=== PATIENT | male | born 1980 | race African-American/Black ===

== ENCOUNTER 2017-10-31 07:26 | Emergency (ER) | payer SELFPAY ==
[2017-10-31 09:42] LABS: #Eosinphils 0.1 thou/uL (0.0-0.7); #Monocytes 0.9 thou/uL (0.11-0.59); #Neutrophils 10.6 thou/uL (1.40-6.50); %Basophils 0.3 % (0.0-1.0); %Eosinophils 0.8 % (0.0-10.0); %Lymphocytes 7.8 % (21.0-51.0); %Monocytes 7.2 % (0.0-10.0); %Neutrophils 83.9 % (42.0-75.0); Hemoglobin 16.6 g/dL (14.0-18.0); Mean Corpuscular HGB CONC 33.2 g/dL (32.0-36.0); Mean Corpuscular Hemoglobin 31.7 pg (27.0-31.0); Mean Corpuscular Volume 95.4 fl (80.0-94.0); Mean Platelet Volume 6.8 fL (7.4-10.4); Platelet Count 283 thou/uL (130-400); RBC Distribution Width 12.5 % (11.5-14.5); Red Blood Cell (RBC) Count 5.26 mill/uL (4.70-6.10); White Blood Cell (WBC) Count 12.7 thou/uL (4.8-10.8)
[2017-10-31 10:01] LABS: Bilirubin Negative (Negative); Blood, Urine Trace (Negative); Clarity CLEAR (Clear); Glucose, Urine (Dipstick) Negative (Negative); Leukocyte Negative (Negative); Nitrite Negative (Negative); Protein, Urine (Dipstick) 100 mg/dL (Neg-Trace); Specific Gravity, Urine 1.023 (1.002-1.036)
[2017-10-31 10:03] LABS: Acetaminophen Less than 6.0 mcg/mL (10.0-30.0); Alcohol Less than 10 mg/dL (Less than 10); Salicylate Less than 8.0 mg/dL (15.0-30.0)
[2017-10-31 10:04] LABS: Bacteria/HPF None Seen HPF (None Seen); Pathc Cast-AUWi Flag 0.58 (0-2.49); Squamous Epithelial 0-3 HPF (0-3); WBC/HPF 0-3 HPF (0-3)
[2017-10-31 10:04] LABS: ALT (SGPT) 17 U/L (8-55); AST (SGOT) 21 U/L (5-34); Alkaline Phosphatase 70 U/L (40-150); Anion Gap 14 mmol/L (10-20); BUN (Urea Nitrogen) 14 mg/dL (8.9-20.6); Bilirubin, Total 0.9 mg/dL (0.2-1.2); CK (CPK) 867 U/L (30-200); Calc. Creatinine Clearance 0 mL/min (70-130); Carbon Dioxide 24 mmol/L (22-29); Chloride 102 mmol/L (98-107); Estimated GFR-MDRD 71; Globulin 3.3 g/dL (2.4-3.5); Glucose 108 mg/dL (70-105); Potassium 4.1 mmol/L (3.5-5.1); Protein, Total 8.3 g/dL (6.0-8.3); Sodium 136 mmol/L (136-145)
--- NOTE | 2017-10-31 10:07 | RAD ---
PA AND LATERAL CHEST: HISTORY: Chest pain. FINDINGS: Heart size and mediastinum are within normal limits. Lungs are clear of infiltrates. No significant bony findings. IMPRESSION: No active intrathoracic disease. POS: [facility]
[2017-10-31 10:08] LABS: CKMB 2.8 ng/mL (0-6.6)
[2017-10-31 10:10] LABS: Hyaline Casts/LPF 0-3 HYALINE CAST LPF (0-3 Hyaline); Renal Epithelial 0-3 HPF (0-3); Transitional Epithelial 0-3 HPF (0-3)
[2017-10-31 10:21] LABS: Troponin I 0.013 ng/mL (< 0.028)
[2017-10-31 10:57] LABS: Amphetamine Not Detected (NotDetected); Barbiturates Screen Not Detected (NotDetected); Benzodiazepine Screen Not Detected (NotDetected); Cocaine Metabolite Screen Detected (NotDetected); Medtox Control Line Valid? VALID (VALID); Medtox Reader # READER 4; Methadone Not Detected (NotDetected); Methamphetamine Not Detected (NotDetected); Opiate Screen Not Detected (NotDetected); Oxycodone Screen Not Detected (NotDetected); Phencyclidine (PCP) Not Detected (NotDetected); THC/Cannabinoid Screen Not Detected (NotDetected); Tricyclic Screen Not Detected (NotDetected)
== END 2017-10-31 11:59 | disposition home or self-care (01) ==
LOC: ERS 07:26
DX: F14.10 Cocaine abuse, uncomplicated (principal); F41.9 Anxiety disorder, unspecified; F32.9 Major depressive disorder, single episode, unspecified; F17.210 Nicotine dependence, cigarettes, uncomplicated; Z79.899 Other long term (current) drug therapy
CPT/HCPCS: 36415; 71046; 80053; 80306; 80307; 81003; 81015; 82553; 84443; 84484; 85025; 93005; 96360; 96361

== ENCOUNTER 2017-12-03 20:17 | Emergency (ER) | payer SELFPAY ==
[2017-12-03 21:52] LABS: Anion Gap 15 mmol/L (10-20); BUN (Urea Nitrogen) 10 mg/dL (8.9-20.6); Calc. Creatinine Clearance 0 mL/min (70-130); Calcium 9.4 mg/dL (7.8-10.44); Carbon Dioxide 22 mmol/L (22-29); Chloride 103 mmol/L (98-107); Estimated GFR-MDRD 54; Glucose 140 mg/dL (70-105); Potassium 3.3 mmol/L (3.5-5.1); Sodium 137 mmol/L (136-145)
--- NOTE | 2017-12-21 17:23 | EKG ---
Test Reason : TACHYCARDIA Blood Pressure : / mmHG Vent. Rate : 108 BPM Atrial Rate : 108 BPM P-R Int : 166 ms QRS Dur : 076 ms QT Int : 344 ms P-R-T Axes : 075 019 034 degrees QTc Int : 460 ms Sinus tachycardia Possible Left atrial enlargement Abnormal ECG Confirmed by ONEIDA BARTH M.D. ([id number]), legal editor KAYY SOLARES ([id number] on 12/21/2017 5:23:01 PM Referred By: Confirmed By:ONEIDA BARTH M.D.
== END 2017-12-03 22:42 | disposition home or self-care (01) ==
LOC: ERS 20:17
DX: F14.10 Cocaine abuse, uncomplicated (principal); R79.89 Other specified abnormal findings of blood chemistry; N17.9 Acute kidney failure, unspecified; F41.9 Anxiety disorder, unspecified; F32.9 Major depressive disorder, single episode, unspecified; F17.210 Nicotine dependence, cigarettes, uncomplicated; Z79.899 Other long term (current) drug therapy
CPT/HCPCS: 36415; 80048; 93005

== ENCOUNTER 2018-04-20 03:11 | Emergency (ER) | payer SELFPAY ==
[2018-04-20 03:59] LABS: Bilirubin Small (Negative); Blood, Urine Trace (Negative); Clarity CLEAR (Clear); Glucose, Urine (Dipstick) Negative (Negative); Leukocyte Negative (Negative); Nitrite Negative (Negative); Protein, Urine (Dipstick) 100 mg/dL (Neg-Trace); Specific Gravity, Urine 1.027 (1.002-1.036)
[2018-04-20 04:01] LABS: Bacteria/HPF Rare-Few HPF (None Seen); Hyaline Casts/LPF 0-3 HYALINE CAST LPF (0-3 Hyaline); Squamous Epithelial 0-3 HPF (0-3)
[2018-04-20 04:05] LABS: Sperm-AUWi Flag 514.7 (0-9.9)
[2018-04-20 04:08] LABS: Amphetamine Not Detected (NotDetected); Barbiturates Screen Not Detected (NotDetected); Benzodiazepine Screen Not Detected (NotDetected); Cocaine Metabolite Screen Detected (NotDetected); Medtox Control Line Valid? VALID (VALID); Medtox Reader # READER 1; Methadone Not Detected (NotDetected); Methamphetamine Not Detected (NotDetected); Opiate Screen Not Detected (NotDetected); Oxycodone Screen Not Detected (NotDetected); Phencyclidine (PCP) Not Detected (NotDetected); THC/Cannabinoid Screen Not Detected (NotDetected); Tricyclic Screen Not Detected (NotDetected)
[2018-04-20 04:11] LABS: RBC/HPF 0-3 HPF (0-3); Sperm/HPF 3+ HPF (None Seen)
[2018-04-20 04:20] LABS: #Monocytes 0.9 thou/uL (0.11-0.59); #Neutrophils 6.8 thou/uL (1.40-6.50); %Basophils 0.4 % (0.0-1.0); %Eosinophils 0.2 % (0.0-10.0); %Lymphocytes 11.4 % (21.0-51.0); %Monocytes 10.5 % (0.0-10.0); %Neutrophils 77.5 % (42.0-75.0); Hemoglobin 15.1 g/dL (14.0-18.0); Mean Corpuscular HGB CONC 33.1 g/dL (32.0-36.0); Mean Corpuscular Hemoglobin 31.8 pg (27.0-31.0); Mean Corpuscular Volume 95.8 fL (78.0-98.0); Mean Platelet Volume 7.3 fL (7.4-10.4); Platelet Count 280 thou/uL (130-400); RBC Distribution Width 12.8 % (11.5-14.5); Red Blood Cell (RBC) Count 4.75 mill/uL (4.70-6.10); White Blood Cell (WBC) Count 8.8 thou/uL (4.8-10.8)
[2018-04-20 04:37] LABS: ALT (SGPT) 23 U/L (8-55); AST (SGOT) 21 U/L (5-34); Albumin 4.9 g/dL (3.5-5.0); Alkaline Phosphatase 89 U/L (40-150); Anion Gap 13 mmol/L (10-20); BUN (Urea Nitrogen) 14 mg/dL (8.9-20.6); Bilirubin, Total 1.4 mg/dL (0.2-1.2); Calc. Creatinine Clearance 0 mL/min (70-130); Calcium 9.9 mg/dL (7.8-10.44); Carbon Dioxide 26 mmol/L (22-29); Chloride 103 mmol/L (98-107); Estimated GFR-MDRD 68; Glucose 101 mg/dL (70-105); Potassium 3.8 mmol/L (3.5-5.1); Protein, Total 7.9 g/dL (6.0-8.3); Sodium 138 mmol/L (136-145)
[2018-04-20 04:42] LABS: Troponin I Less than 0.010 ng/mL (< 0.028)
[2018-04-20 07:59] LABS: Troponin I Less than 0.010 ng/mL (< 0.028)
--- NOTE | 2018-04-20 08:57 | RAD ---
CHEST 2 VIEWS: COMPARISON: 10/31/2017. HISTORY: Pain. FINDINGS: Normal cardiac silhouette. Pulmonary vessels and hilum are normal. Costophrenic angles are clear. No masses or consolidation. No pneumothorax or osseous abnormalities. IMPRESSION: No acute cardiopulmonary process. POS: [facility]
== END 2018-04-20 08:22 ==
LOC: ERS 03:11
DX: F14.10 Cocaine abuse, uncomplicated (principal); F91.8 Other conduct disorders; F17.210 Nicotine dependence, cigarettes, uncomplicated
CPT/HCPCS: 36415; 36416; 71046; 80053; 80306; 81003; 81015; 84484; 85025; 93005

== ENCOUNTER 2019-02-23 10:58 | Day surgery (SDC) | payer OTHER ==
[2019-02-19 10:49] VITALS: BMI 25.0
[2019-02-23] MEDS ORDERED: Lidocaine 1% (PF) 30 ML VIAL ONE (11:59)
[2019-02-23] MEDS ORDERED: Fentanyl 100 MCG/2 ML VIAL ONE ×2 (13:12→14:51)
[2019-02-23] MEDS ORDERED: HYDROmorphone 0.5 MG/0.5 ML SYRINGE ONE (13:12)
[2019-02-23] MEDS ORDERED: Bupivacaine HCl 0.5%/Epinephrine 1:200,000/PF 30 ml Vial ONE (13:47)
[2019-02-23] MEDS ORDERED: Bupivacaine/Epinephrine 0.25% 30 ML VIAL ONE (13:47)
[2019-02-23] MEDS ORDERED: Lidocaine 1% PF 5 ML VIAL ONE (13:58)
[2019-02-23] MEDS ORDERED: ePHEDrine 50 MG/ML VIAL ONE (13:58)
[2019-02-23] MEDS ORDERED: Ketorolac Tromethamine 30 MG/ML VIAL ONE (13:58)
[2019-02-23] MEDS ORDERED: PROPOFOL 200 MG/20 ML VIAL ONE (13:58)
[2019-02-23] MEDS ORDERED: Dexamethasone 20 MG/5 ML VIAL ONE (13:58)
[2019-02-23] MEDS ORDERED: Ondansetron PF 4 MG/2 ML Vial ONE (13:58)
--- NOTE | 2019-02-23 14:47 | RAD ---
INTRAOPERATIVE VIEWS OF THE RIGHT WRIST: INDICATION: Hardware removal. FINDINGS: Intraoperative views reveal removal of plate and screws of the imaged distal radius and carpus. Violet us detail is limited on the provided intraoperative, magnified fluoroscopic views. Mild osseous irregularity is seen at the level of the ulnar styloid. IMPRESSION: Intraoperative imaging of the right wrist. Transcribed Date/Time: 02/23/2019 3:04 PM
[2019-02-23] MEDS ORDERED: Promethazine HCl 25 MG/ML VIAL ONE (14:51)
--- NOTE | 2019-02-23 17:12 | OP ---
DATE OF PROCEDURE: 02/23/2019 PREOPERATIVE DIAGNOSIS: Retained hardware of the right wrist secondary to a 6-month-old wrist dislocation. POSTOPERATIVE DIAGNOSIS: Retained hardware of the right wrist secondary to a 6-month-old wrist dislocation. PROCEDURE: Removal of hardware. DESCRIPTION OF PROCEDURE: The patient was brought to the operating room, and after administration of general anesthetic and intubation, the patient's upper extremity was prepped and draped in the usual fashion. The tourniquet was inflated. A straight transverse incision was made over the middorsal wrist following previous scar, and the extensor pollicis longus was released from the third dorsal compartment, and the plate was exposed lying underneath the extensor tendon to the fingers. The plate was removed, and a total of 7 screws were taken out. The plate spanned the wrist joint, which was recently removed. Following removal, x-rays were taken, which showed that there was very minimal extension, flexion, radial, ulnar deviation due to stiffness from the hardware being in. The skin and subcutaneous tissues were infiltrated with 20 mL of 1% Xylocaine with epinephrine, and the wound was copiously irrigated. The tourniquet was released, bleeders were cauterized, and the skin was closed with interrupted 4-0 nylon mattress sutures. A well-padded dressing was applied, and the patient was taken to the recovery room in satisfactory condition. He was monitored. When he was awake and stable, he was discharged home. He was given an ice bag, instruction and elevation of sling, a prescription for pain medication, and followup appointments. Job ID: [id number]
== END 2019-02-23 16:52 | disposition home or self-care (01) ==
LOC: SDC 10:58
PROVIDERS: ATTEND Orthopaedic Surgery
PROC: 0XP Anatomical Regions, Upper Extremities, Removal (ICD-10-PCS; principal; 2019-02-23)
DX: Z47.2 Encounter for removal of internal fixation device (principal)
CPT/HCPCS: 76000; J0670; J1100; J1170; J1885; J2001; J2405; J2550; J2704; J3010; J3490

== ENCOUNTER 2019-03-09 15:54 | Outpatient (CLI) | payer OTHER ==
--- NOTE | 2019-03-10 08:54 | MRI ---
MRI RIGHT WRIST WITHOUT IV CONTRAST: INDICATIONS: Status post hardware removal for fracture. Evaluate healing status of the right wrist. COMPARISON: Right wrist radiographs date 02/23/2019 and 11/18/2018. FINDINGS: The dorsal plate and screw construct fixating the distal carpal row, long finger metacarpal and dista l radius has been removed. There is some mild residual dorsal subluxation of the scaphoid in respect to the lunate. The dorsal scapholunate ligament is visualized and does appear intact on image 13 of series 4. There is suscept ibility artifact along the volar aspect of the scaphoid that has limited visualization of the volar a nd interosseous components. Capitate-lunate alignment appears within normal limits. Lunate triquetr al alignment appears within normal limits with a healed lunatotriquetral ligament. The radial scapho capitate extrinsic ligament appears intact. The additional extrinsic ligaments are slightly difficul t to demonstrate due to susceptibility artifact and motion artifact. There is an obliquely oriented tear involving the central body of the TFC, best seen on image 12 and 13 of series 8. The peripheral attachments appear intact. There is mild fluid signal intensity filling the third and fourth dorsal compartments, likely related to some mild residual extensor tenosynovitis, which may be related to recent removal of hardware. S crew defects are seen within the distal radius, distal capitate and proximal long finger metacarpal. No acute fracture is evident. The carpal tunnel and its contents appear within normal limits. The median nerve and ulnar neurovasculature appear within normal limits. IMPRESSION: 1. Suspected healing of the dorsal scapholunate ligament with some residual mild dorsal subluxation of the scaphoid, in relationship to the lunate. The lunatotriquetral ligaments appear to have interv ally healed. The visualized aspects of the radial scaphocapitate extrinsic ligament appears to have intervally healed. 2. Obliquely oriented central triangular fibrocartilage complex tear. 3. Mild tenosynovitis of the third and fourth dorsal compartments. POS: [facility]
== END 2019-03-09 15:55 | disposition home or self-care (01) ==
LOC: SCSMRI 15:54
PROVIDERS: ATTEND Orthopaedic Surgery
DX: S63.004A Unspecified dislocation of right wrist and hand, initial encounter (principal); S63.501A Unspecified sprain of right wrist, initial encounter; M65.9 Synovitis and tenosynovitis, unspecified

== ENCOUNTER 2019-03-18 09:32 | Outpatient (CLI) | payer OTHER ==
--- NOTE | 2019-03-18 10:40 | CT ---
CT Upper Ext Rt WO Con History: Wrist dislocation. Hardware removal. Evaluate healing status. Comparison: Multiple prior radiographs along with wrist MRI March 09, 2019 Findings: Bones: Continued dorsal subluxation of the scaphoid which articulates with the dorsal radia l lip. The scaphoid trapezium and scaphoid trapezoid neural alignment is normal. Normal angulation without displacement of the lunate. The capitate- articulation is normal. L unotriquetral alignment is normal. Scapholunate interval is abnormally increased. No acute fracture. There are dorsal screw tracks of the distal radius as well as of the third metacar pal. Hook of the hamate and tubercle of the trapezium are intact. Impression: 1. Continued dorsal subluxation of the scaphoid articulating with the dorsal radial lip from prior ca rpal instability complex. No acute fracture. 2. Normal articulation of the lunocapitate joint as well as the lunotriquetral joint. 3. Widened scapholunate interval.
== END 2019-03-18 09:33 | disposition home or self-care (01) ==
LOC: SCSCT 09:32
PROVIDERS: ATTEND Orthopaedic Surgery
DX: S63.00 Unspecified subluxation and dislocation of wrist and hand (principal); Z98.890 Other specified postprocedural states

== ENCOUNTER 2019-04-08 | Observation (INO) | payer OTHER ==
[2019-04-08 01:02] LABS: Bacteria/HPF None Seen HPF (None Seen); Bilirubin Negative (Negative); Blood, Urine 2+ (Negative); Clarity Clear (Clear); Glucose, Urine (Dipstick) Normal (Negative); Leukocyte Negative Leu/uL (Negative); Nitrite Negative (Negative); Protein, Urine (Dipstick) 200 mg/dL (Neg-Trace); Squamous Epithelial 0-3 HPF (0-3); Urobilinogen Normal mg/dL (Less than 2); WBC/HPF 0-3 HPF (0-3)
[2019-04-08] MEDS ORDERED: Aspirin Chewable 81 MG TAB ONE (01:18)
[2019-04-08] MEDS ORDERED: Lorazepam 2 MG/ML VIAL ONE ×2 (04:59→06:11)
[2019-04-08 06:16] LABS: Troponin I 0.033 ng/mL (< 0.028)
[2019-04-08] MEDS ORDERED: Sodium Chloride 0.9% 1,000 ML IV SCH (07:15)
[2019-04-08] MEDS ORDERED: cloNIDine 0.1 MG TAB PO PRN (08:16)
[2019-04-08] MEDS ORDERED: Loperamide HCl 2 MG CAP PO PRN (08:16)
[2019-04-08] MEDS ORDERED: Zolpidem Tartrate 5 MG TAB PO PRN (08:16)
[2019-04-08] MEDS ORDERED: Loratadine 10 MG TAB PO PRN (08:16)
[2019-04-08] MEDS ORDERED: Diabetic Tussin 200 MG/10 ML UDCUP PO PRN (08:16)
[2019-04-08] MEDS ORDERED: Ondansetron ODT 4 MG TAB PO PRN (08:16)
[2019-04-08] MEDS ORDERED: Ondansetron PF 4 MG/2 ML Vial IVP PRN (08:16)
[2019-04-08] MEDS ORDERED: Nitroglycerin 0.4 MG TAB (25 Tab Bottle) SL PRN (08:16)
[2019-04-08] MEDS ORDERED: Acetaminophen 325 MG TAB PO PRN (08:16)
[2019-04-08] MEDS ORDERED: Senokot S 8.6-50 MG TAB PO PRN (08:16)
[2019-04-08] MEDS ORDERED: hydrALAZINE 20 MG/ML VIAL SLOW IVP PRN (08:16)
[2019-04-08] MEDS ORDERED: Bisacodyl 10 MG SUPP PR PRN ×2 (08:16)
[2019-04-08] MEDS ORDERED: HYDROcodone/Acetaminophen 5/325 mg Tablet PO PRN (08:16)
[2019-04-08] MEDS ORDERED: Sodium Chloride 0.65% Nasal 44 ML BOT EA NARE PRN (08:16)
[2019-04-08] MEDS ORDERED: Calcium Carbonate 500 MG ChewTAB PO PRN (08:16)
[2019-04-08] MEDS ORDERED: Cepastat Lozenges 1 LOZ PO PRN (08:16)
[2019-04-08 08:52] LABS: Troponin I 0.025 ng/mL (< 0.028)
[2019-04-08 08:57] VITALS: BMI 23.3
[2019-04-08] MEDS ORDERED: Famotidine 20 MG TAB PO SCH (09:00)
[2019-04-08] MEDS: Sodium Chloride 0.9% 1,000 ML IV SCH ×2 (09:09→14:02)
[2019-04-08] MEDS ORDERED: Lorazepam 1 MG TAB PO PRN (12:03)
[2019-04-08] MEDS ORDERED: Lorazepam 2 MG/ML VIAL SLOW IVP PRN (12:03)
--- NOTE | 2019-04-08 12:52 | HP ---
PRIMARY CARE PHYSICIAN: [facility] Call admission. REASON FOR ADMISSION: Transferred from [facility] for rhabdomyolysis. HISTORY OF PRESENT ILLNESS: This is a 38-year-old male, who was initially evaluated at [facility]. The patient was taken to [facility] for hallucination and paranoia. The patient and family reported that he smoked meth a few hours before going to emergency room and subsequently, he started hallucinating, he was feeling palpitation. At [facility], the patient was not able to provide any good history. He was actively hallucinating. He was tachycardic with pulse 149. Routine blood test showed rhabdomyolysis, and his urine drug screen was positive for cocaine and methamphetamine. His troponin was elevated. The patient was transferred to our hospital for further evaluation and treatment. The patient reports that he had this type of problem in the past and he required admission in [place] for several days. REVIEW OF SYSTEMS: CONSTITUTIONAL: Negative for weight loss or gain, ability to conduct usual activities. SKIN: Negative for rash, itching. EYES: Negative for double vision, pain. ENT/MOUTH: Negative for nose bleeding, neck stiffness, pain, tenderness. CARDIOVASCULAR: Negative for palpitations, dyspnea on exertion, orthopnea. RESPIRATORY: Negative for shortness of breath, wheezing, cough, hemoptysis, fever or night sweats. GASTROINTESTINAL: Negative for poor appetite, abdominal pain, heartburn, nausea , vomiting, constipation, or diarrhea. GENITOURINARY: Negative for urgency, frequency, dysuria, nocturia. MUSCULOSKELETAL: Negative for pain, swelling. NEUROLOGIC/PSYCHIATRIC: Negative for anxiety, depression. ALLERGY/IMMUNOLOGIC: Negative for skin rash, bleeding tendency. Please see my HPI for pertinent positives and negatives. All other review of systems reviewed and negative except as mentioned in HPI. PAST MEDICAL HISTORY: Polysubstance abuse, CKD stage 3, and history of rhabdomyolysis in the past. PAST SURGICAL HISTORY: Left below-elbow amputation. PAST PSYCHIATRIC HISTORY: Anxiety, borderline personality disorder, and polysubstance abuse. SOCIAL HISTORY: The patient is a drug abuser. He abuses methamphetamine and cocaine periodically. He also smokes. He drinks alcohol socially. He lives at home with his mother. FAMILY HISTORY: No strong family history of premature coronary artery disease, stroke, or cancer. ALLERGIES: NO KNOWN DRUG ALLERGIES. CURRENT HOME MEDICATIONS: 1. BuSpar 10 mg t.i.d. 2. one tablet 3 times daily p.r.n. 3. Melatonin 10 mg at bedtime. 4. Gabapentin 300 mg 3 times daily. EMERGENCY ROOM COURSE: At [facility], the patient was given Ativan 1 mg p.o. and 1 mg IV and IV fluid. The patient received another 1 mg in our emergency room and 2 L of IV fluid as well as aspirin were given. PHYSICAL EXAMINATION: VITAL SIGNS: On arrival, blood pressure 155/98, pulse 117, respiratory rate 20, temperature 99.0, saturation 99% on room air. Weight 62 kg. GENERAL: The patient is currently alert and awake with flight of ideas. HEENT: Head, normocephalic and atraumatic. Eyes, pupils round and reactive to light. Extraocular muscle intact. ENT, oropharynx within normal limits. Moist mucous membranes. No oral lesion. No pharyngeal erythema. No exudate. NECK: Supple. No JVD. No thyromegaly. No carotid bruit. No jugular venous distention. LUNGS: Clear to auscultation without any rhonchi or rales. CARDIAC: S1 and S2, regular. Tachycardia. No murmur. No gallop. No rub. ABDOMEN: Soft. Bowel sounds present. Nontender. Nondistended. No organomegaly. No mass. No suprapubic tenderness. BACK: Unremarkable. No CVA tenderness. EXTREMITIES: Upper extremities; passive movement of all joints is normal. Lower extremities; no edema, good distal pulsation. SKIN: No skin rash. HEMATOLOGIC: No lymphadenopathy. NEUROLOGIC: Nonfocal examination. MUSCULOSKELETAL: The patient has below-elbow left side amputation. SIGNIFICANT LABORATORY DATA: CBC; WBC 12.2, hemoglobin 15.6, platelets 274, with left shift and bandemia. BMP; sodium 140, potassium 3.9, chloride 102, carbon dioxide 22, BUN 25, creatinine 1.83, glucose 120, calcium 10.3. LFT; AST bilirubin 1.8, albumin 5.2. CK 3204, CK-MB 6.6, and troponin-I 0.038, then 0.027, then 0.033, and then 0.025. Urinalysis consistent with proteinuria, blood moderate, and rbc's only 4 to 6. Urine drug screen positive for amphetamine, methamphetamine, cocaine. Serum drug screen negative. EKG showing sinus tachycardia. ASSESSMENT AND PLAN AND IMPRESSION: 1. Acute rhabdomyolysis due to polysubstance abuse including cocaine and methamphetamine. The patient has blood moderate and rbc's only 4 to 6 that also explains myoglobinuria and that is why his urinalysis is abnormal from rhabdomyolysis. The patient will need IV fluid for hydration. He has baseline renal insufficiency and his creatinine is elevated. 2. Acute on chronic kidney failure. The patient's baseline renal function is normal and currently 1.83, most likely related with rhabdomyolysis. The patient will be hydrated with IV fluid and we will repeat labs tomorrow. We will avoid nephrotoxin agent. 3. Polysubstance abuse including cocaine and methamphetamine as well as smoker and alcohol abuse. The patient is given counseling to avoid alcohol abuse as well as other illicit drug abuse. 4. Psychosis, likely due to underlying drug abuse. Currently, the patient has been stabilized from that perspective. He is not actively hallucinating. The patient has bedside sitter, but seems like he will not need any bedside sitter, he is not suicidal, homicidal, or agitated. We will use lorazepam p.r.n. on a basis. 5. Sinus tachycardia, likely due to drug abuse with methamphetamine and cocaine. We will monitor on telemetry floor. 6. Elevated troponin, likely due to demand ischemia as well as rhabdomyolysis. 7. Chronic kidney disease, stage 3 or 2. We will monitor renal function. 8. Leukocytosis with bandemia due to stress response. We will repeat CBC tomorrow. 9. Deep venous thrombosis prophylaxis not needed because we are expecting discharge in another 24 hours. 10. Gastrointestinal prophylaxis. Pepcid 20 mg p.o. b.i.d. CODE STATUS: The patient is full code and the patient does not have any surrogate decision maker. DISPOSITION PLAN: Based on clinical course. Plan of care discussed with the patient in detail. Job ID: [id number] [facility] HOSPITALMadeline
[2019-04-08] MEDS ORDERED: Nicotine 21 MG PATCH TD SCH (15:00)
[2019-04-08 15:25] VITALS: BP 140/82; TEMP 97.5
--- NOTE | 2019-04-08 15:40 | DIS ---
DATE OF ADMISSION: 04/08/2019 DATE OF DISCHARGE: 04/08/2019 PRIMARY CARE PHYSICIAN: [facility]. DISCHARGE DISPOSITION: Against medical advice. PRIMARY DISCHARGE DIAGNOSES: 1. Polysubstance abuse including cocaine and methamphetamine. 2. Rhabdomyolysis. 3. Elevated troponin due to demand ischemia. 4. Leukocytosis. 5. Sinus tachycardia due to drug abuse. SECONDARY DISCHARGE DIAGNOSES: 1. Polysubstance abuse. 2. Anxiety and depression. 3. Chronic pain disorder. PRIMARY PROCEDURE/OPERATION: None. RADIOLOGICAL INVESTIGATION: None. SIGNIFICANT LABORATORY DATA: Please see my HPI for more detail. Noted that CK is 3204 and troponin is indeterminate. DISCHARGE MEDICATIONS: The patient left against medical advice without any medication. He was on; 1. [place] 1 tablet q.6 hourly. 2. BuSpar 5 mg at bedtime. 3. Gabapentin 300 mg t.i.d. 4. Meloxicam 10 mg daily. CONTRAINDICATION: None. CODE STATUS: Full code. INPATIENT SHUTTLE OPERATOR: None. ALLERGIES: NO KNOWN DRUG ALLERGIES. DISCHARGE PLAN: Posthospital, the patient will make appointment with primary care physician by himself. HOSPITAL COURSE: A 38-year-old male who was admitted by me. Please see my HPI for more details. The patient was admitted in the hospital around 3:00 a.m. He left against medical advice at 3:00 p.m. While in hospital, we treated him with IV fluid for rhabdomyolysis. We provided the patient counseling to avoid polysubstance abuse. We wanted to keep him overnight for hydration, but the patient left against medical advice. The patient admitted and discharged on the same day. Job ID: [id number]
[2019-04-09] MEDS ORDERED: Nicotine 21 MG PATCH TD SCH (09:00)
--- NOTE | 2019-04-11 23:40 | EKG ---
Test Reason : Blood Pressure : / mmHG Vent. Rate : 114 BPM Atrial Rate : 114 BPM P-R Int : 134 ms QRS Dur : 070 ms QT Int : 316 ms P-R-T Axes : 079 054 051 degrees QTc Int : 435 ms Sinus tachycardia Otherwise normal ECG Confirmed by ASIYA SUAREZ DO ([id number]), restaurant expeditor KAYY SOLARES ([id number]) on 04/11/2019 11:39:38 PM Referred By: Confirmed By:AISYA SUAREZ DO
== END 2019-04-08 15:20 | disposition left against medical advice (07) ==
LOC: ERS → ERHOLD 02:25 → 2NO 07:06
PROVIDERS: ADMIT Hospitalist; ATTEND Hospitalist
DX: T40.5X1A Poisoning by cocaine, accidental (unintentional), initial encounter (principal); T43.621A Poisoning by amphetamines, accidental (unintentional), initial encounter; M62.82 Rhabdomyolysis; R00.0 Tachycardia, unspecified; N17.9 Acute kidney failure, unspecified; N18.3 Chronic kidney disease, stage 3 (moderate); I24.8 Other forms of acute ischemic heart disease; D72.829 Elevated white blood cell count, unspecified; F41.8 Other specified anxiety disorders; F32.9 Major depressive disorder, single episode, unspecified; F29 Unspecified psychosis not due to a substance or known physiological condition; F17.210 Nicotine dependence, cigarettes, uncomplicated; G89.29 Other chronic pain; Z79.899 Other long term (current) drug therapy
CPT/HCPCS: 36415; 81003; 82550; 84484; 93005; 94760; 96361; 96374; G0378; J2060

== ENCOUNTER 2019-04-18 17:40 | Emergency (ER) | payer OTHER ==
--- NOTE | 2019-04-18 18:24 | RAD ---
EXAM: Single view of the chest HISTORY: Chest pain after ingestion of unknown substance which is possibly methadone COMPARISON: 06/07/2014 FINDINGS: Single view of the chest shows a normal sized cardiomediastinal silhouette. There is no tyesha dence of consolidation, mass, or pleural effusion. The bones are unremarkable. IMPRESSION: No evidence of acute cardiopulmonary disease
[2019-04-18 19:27] LABS: Bacteria/HPF None Seen HPF (None Seen); Bilirubin Negative (Negative); Blood, Urine Trace (Negative); Clarity Clear (Clear); Glucose, Urine (Dipstick) Normal (Negative); Leukocyte Negative Leu/uL (Negative); Nitrite Negative (Negative); Protein, Urine (Dipstick) 200 mg/dL (Neg-Trace); Squamous Epithelial 0-3 HPF (0-3); Urobilinogen 3 mg/dL (Less than 2)
[2019-04-18 19:33] LABS: Sperm/HPF Rare HPF (None Seen)
[2019-04-18 19:34] LABS: Mucous/LPF 2+ LPF (<2+)
[2019-04-18 19:50] LABS: #Basophils 0.1 thou/uL (0.0-0.2); #Eosinphils 0.1 thou/uL (0.0-0.7); #Lymphocytes 0.8 thou/uL (1.20-3.40); #Neutrophils 10.1 thou/uL (1.40-6.50); %Basophils 0.5 % (0.0-1.0); %Eosinophils 0.6 % (0.0-10.0); %Lymphocytes 6.8 % (21.0-51.0); %Monocytes 8.3 % (0.0-10.0); %Neutrophils 83.8 % (42.0-75.0); Hemoglobin 15.7 g/dL (14.0-18.0); Mean Corpuscular HGB CONC 33.8 g/dL (32.0-36.0); Mean Corpuscular Hemoglobin 31.9 pg (27.0-31.0); Mean Corpuscular Volume 94.5 fL (78.0-98.0); Mean Platelet Volume 6.8 fL (7.4-10.4); Platelet Count 337 thou/uL (130-400); RBC Distribution Width 12.9 % (11.5-14.5); Red Blood Cell (RBC) Count 4.91 mill/uL (4.70-6.10); White Blood Cell (WBC) Count 12.1 thou/uL (4.8-10.8)
[2019-04-18 20:10] LABS: ALT (SGPT) 18 U/L (8-55); AST (SGOT) 27 U/L (5-34); Albumin 5.3 g/dL (3.5-5.0); Alkaline Phosphatase 84 U/L (40-110); Anion Gap 20 mmol/L (10-20); BUN (Urea Nitrogen) 13 mg/dL (8.9-20.6); Bilirubin, Total 1.1 mg/dL (0.2-1.2); CK (CPK) 596 U/L (30-200); Calc. Creatinine Clearance 0 mL/min (70-130); Calcium 10.2 mg/dL (7.8-10.44); Carbon Dioxide 20 mmol/L (22-29); Chloride 103 mmol/L (98-107); Estimated GFR-MDRD 62; Globulin 3.1 g/dL (2.4-3.5); Glucose 98 mg/dL (70-105); Potassium 4.5 mmol/L (3.5-5.1); Protein, Total 8.4 g/dL (6.0-8.3); Sodium 138 mmol/L (136-145)
[2019-04-18] MEDS ORDERED: Nicotine 14 MG PATCH TOP SCH (20:15)
== END 2019-04-18 21:09 | disposition home or self-care (01) ==
LOC: ERS 17:40
DX: F19.10 Other psychoactive substance abuse, uncomplicated (principal); E86.0 Dehydration; R50.9 Fever, unspecified; F17.210 Nicotine dependence, cigarettes, uncomplicated
CPT/HCPCS: 36415; 71045; 80053; 81003; 81015; 82550; 85025

== ENCOUNTER 2019-06-10 08:40 | Outpatient (CLI) | payer OTHER ==
--- NOTE | 2019-06-10 11:41 | CT ---
Exam: Right upper extremity CT scan with attention to the wrist COMPARISON: 03/18/2019 FINDINGS: Again noted is scapholunate disassociation. There is persistent dorsal subluxation of the scaphoid re lative to the distal radial lip postoperative changes of the distal radius. IMPRESSION: Overall stable appearing scapholunate disassociation and associated carpal instability with dorsally subluxed scaphoid relative to the dorsal distal radius.
== END 2019-06-10 08:41 | disposition home or self-care (01) ==
LOC: SCSCT 08:40
PROVIDERS: ATTEND Orthopaedic Surgery
DX: S63.094A Other dislocation of right wrist and hand, initial encounter (principal)

== ENCOUNTER 2019-07-17 12:54 | Outpatient (CLI) | payer OTHER ==
[2019-07-17 15:23] LABS: Hemoglobin 14.6 g/dL (14.0-18.0); Mean Corpuscular HGB CONC 32.2 g/dL (32.0-36.0); Mean Corpuscular Hemoglobin 30.2 pg (27.0-31.0); Mean Corpuscular Volume 93.6 fL (78.0-98.0); Mean Platelet Volume 8.8 fL (7.4-10.4); Platelet Count 248 thou/uL (130-400); RBC Distribution Width 12.3 % (11.5-14.5); Red Blood Cell (RBC) Count 4.83 mill/uL (4.70-6.10); White Blood Cell (WBC) Count 6.3 thou/uL (4.8-10.8)
[2019-07-17 15:44] LABS: Anion Gap 14 mmol/L (10-20); BUN (Urea Nitrogen) 14 mg/dL (8.9-20.6); Calc. Creatinine Clearance 0 mL/min (70-130); Calcium 10.1 mg/dL (7.8-10.44); Carbon Dioxide 22 mmol/L (22-29); Chloride 107 mmol/L (98-107); Estimated GFR-MDRD Greater than 90; Glucose 76 mg/dL (70-105); Potassium 4.4 mmol/L (3.5-5.1); Sodium 139 mmol/L (136-145)
== END 2019-07-17 12:55 | disposition home or self-care (01) ==
LOC: LABBT 12:54
PROVIDERS: ATTEND Orthopaedic Surgery
DX: S63.004A Unspecified dislocation of right wrist and hand, initial encounter (principal)
CPT/HCPCS: 80048; 85027

== ENCOUNTER 2019-07-20 10:38 | Day surgery (SDC) | payer OTHER ==
[2019-07-17 13:14] VITALS: BMI 25.0
[2019-07-20] MEDS ORDERED: Neomycin-Polymyxin 1 ML AMP ONE (12:30)
[2019-07-20] MEDS ORDERED: Fentanyl 100 MCG/2 ML VIAL ONE ×5 (13:24→18:10)
[2019-07-20] MEDS ORDERED: EPINEPHrine 1 MG/ML AMP ONE (15:58)
[2019-07-20] MEDS ORDERED: Bupivacaine 0.25% HCL 30 ML VIAL ONE (15:58)
--- NOTE | 2019-07-20 16:13 | RAD ---
Exam: XR Wrist Rt 2 View HISTORY: Right wrist fusion COMPARISON: None FINDINGS: 2 intraoperative fluoroscopic images of the right wrist are submitted for interpretation. Images demo nstrate multiple screws overlying the mid and medial carpal bones. The scaphoid bone is not visualized and likely surgically absent. Correlation with intraoperative findings is recommended.
[2019-07-20] MEDS ORDERED: Promethazine HCl 25 MG/ML VIAL ONE (17:31)
--- NOTE | 2019-07-20 19:06 | OP ---
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 PROCEDURE PERFORMED: Scaphoid excision with four bone fusion and resection of the anterior and posterior interosseous nerves. DESCRIPTION OF PROCEDURE: The patient was brought to the operating room and after administration of general anesthetic and intubation, the right upper extremity was prepped and draped in the usual fashion and the tourniquet was inflated. A straight longitudinal incision was made in the mid dorsal wrist following a previous scar and flaps were reflected and the extensor pollicis longus was released from scar tissue and its compartment. The extensor carpi radialis brevis was identified and the interval between it and fourth dorsal compartment was developed and the fourth dorsal compartment was reflected entirely with its sheath in an ulnar direction. This exposed the wrist joint and it was noted that the dorsal wrist had almost completely fused with the scaphoid being subluxed dorsally out of its concavity in the scaphoid fossa. The scaphoid was then removed piecemeal exposing the scaphoid fossa, which was uneven and had lost lot of cartilage. The lunate fossa did not look perfect, but looked a lot better than the scaphoid fossa and did have some good cartilage on it. There was a significant dorsal rim of bone extending across the scaphoid and the lunate, which was blocking wrist extension. A portion of this was removed, which did facilitate wrist extension. The dorsal cartilage from the rim of the radius was also removed again to facilitate wrist extension. The wrist was then temporarily pinned with a 0.026 K-wire and the dorsal wrist was reamed with a reamer of that comes with the circular plate. A 16 mm plate was used. The plate had 10 holes in it and 9 of them were filled with screws getting 2 screws in the lunate, 3 in the capitate, 2 in the hamate, and 2 in the triquetrum. Wrist was examined after fixation with the plate and after x-rays have been taken, which confirmed satisfactory position of the plate and screws. There was approximately 30 degrees of extension and 45 degrees of flexion. The posterior interosseous nerve was then identified in the fourth dorsal compartment just proximal to the extensor sheath for that compartment and was removed and cauterized. The tendons were then reflected in a radial direction and the interosseous space between the radius and ulnar was identified and a small incision was made in it and the anterior interosseous nerve was identified and sectioned with Bovie cautery. The wound was copiously irrigated multiple times before and after putting the plate on. The skin was then infiltrated with 0.25% Marcaine with epinephrine. The retinaculum of the fourth dorsal compartment was loosely reapproximated with 3-0 Vicryl. The skin was then closed with interrupted 4-0 nylon horizontal mattress sutures. A dressing with a volar plaster splint was applied and the patient was taken to the recovery room in satisfactory condition. He was monitored. When he was awake and alert, he was discharged home. He was given a prescription for pain medication and a followup appointment. Job ID: [id number]
[2019-07-20] MEDS ORDERED: HYDROcodone/Acetaminophen 5/325 mg Tablet ONE (19:09)
== END 2019-07-20 19:45 | disposition home or self-care (01) ==
LOC: SDC 10:38
PROVIDERS: ATTEND Orthopaedic Surgery
PROC: 0RGN04Z Fusion of Right Wrist Joint with Internal Fixation Device, Open Approach (ICD-10-PCS; principal; 2019-07-20)
DX: M19.031 Primary osteoarthritis, right wrist (principal); S63.021A Subluxation of radiocarpal joint of right wrist, initial encounter; Z79.1 Long term (current) use of non-steroidal anti-inflammatories (NSAID); Z79.899 Other long term (current) drug therapy
CPT/HCPCS: 76000; J0171; J0690; J2550; J3010; S0020

== ENCOUNTER 2022-11-10 04:45 | Emergency (ER) | payer OTHER ==
[2022-11-10] MEDS ORDERED: Loperamide HCl 2 MG CAP ONE (05:05)
[2022-11-10] MEDS ORDERED: LORazepam 2 MG/ML SYR.(CARPUJECT) ONE (05:05)
== END 2022-11-10 06:42 | disposition home or self-care (01) ==
LOC: ERS 04:45
DX: F22 Delusional disorders (principal); F19.959 Other psychoactive substance use, unspecified with psychoactive substance-induced psychotic disorder, unspecified; F17.210 Nicotine dependence, cigarettes, uncomplicated
CPT/HCPCS: 93005; 96360; 96372; J2060

== ENCOUNTER 2023-08-13 00:19 | Observation (INO) | payer OTHER ==
[2023-08-13] MEDS ORDERED: Lorazepam 1 MG TAB ONE (01:39)
[2023-08-13] MEDS ORDERED: Ondansetron PF 4 MG/2 ML Vial ONE (01:39)
[2023-08-13 01:43] LABS: #Monocytes 1.5 thou/uL (0.11-0.59); #Neutrophils 16.1 thou/uL (1.40-6.50); %Basophils 0.2 % (0.0-1.0); %Lymphocytes 2.7 % (21.0-51.0); %Monocytes 8.2 % (0.0-10.0); %Neutrophils 87.2 % (42.0-75.0); Hematocrit 49.2 % (42.0-52.0); Hemoglobin 16.9 g/dL (14.0-18.0); Mean Corpuscular HGB CONC 34.3 g/dL (32.0-36.0); Mean Corpuscular Hemoglobin 31.2 pg (27.0-31.0); Mean Corpuscular Volume 90.9 fl (78.0-98.0); Mean Platelet Volume 9.6 fL (7.4-10.4); Platelet Count 286 10x3/uL (130-400); Red Blood Cell (RBC) Count 5.41 mill/uL (4.70-6.10); White Blood Cell (WBC) Count 18.4 10x3/uL (4.8-10.8)
[2023-08-13 02:11] LABS: ALT (SGPT) 38 U/L (8-55); AST (SGOT) 35 U/L (5-34); Albumin 5.6 g/dL (3.5-5.0); Alkaline Phosphatase 72 U/L (40-110); Anion Gap 22 mmol/L (10-20); BUN (Urea Nitrogen) 16 mg/dL (8.9-20.6); Bilirubin, Total 0.8 mg/dL (0.2-1.2); Calc. Creatinine Clearance 0 mL/min (70-130); Calcium 10.8 mg/dL (7.8-10.44); Carbon Dioxide 22 mmol/L (22-29); Chloride 100 mmol/L (98-107); Estimated GFR 50; Globulin 3.5 g/dL (2.4-3.5); Glucose 115 mg/dL (70-105); Potassium 4.6 mmol/L (3.5-5.1); Protein, Total 9.1 g/dL (6.0-8.3); Sodium 139 mmol/L (136-145)
[2023-08-13 02:12] LABS: Acetaminophen Less than 10 mcg/mL (10.0-30.0); Alcohol Less than 10.0 mg/dL (Less than 10); CK (CPK) 1205 U/L (30-200); Lipase 30 U/L (8-78); Salicylate Less than 8.0 mg/dL (15.0-30.0)
[2023-08-13 02:14] LABS: Troponin I 0.108 ng/mL (< 0.028)
[2023-08-13] MEDS ORDERED: Ondansetron ODT 4 MG TAB PO PRN (03:43)
[2023-08-13] MEDS ORDERED: Senokot S 8.6-50 MG TAB PO PRN (03:43)
[2023-08-13] MEDS ORDERED: Acetaminophen 325 MG TAB PO PRN (03:43)
[2023-08-13] MEDS: Lactated Ringer's 1,000 ML IV SCH (06:37)
[2023-08-13 07:00] LABS: Troponin I 0.111 ng/mL (< 0.028)
[2023-08-13 07:50] LABS: Troponin I 0.071 ng/mL (< 0.028)
[2023-08-13] MEDS ORDERED: Famotidine 20 MG TAB ONE (09:34)
[2023-08-13] MEDS: Famotidine 20 MG TAB PO SCH (09:44)
[2023-08-13] MEDS ORDERED: Iopamidol-370 76% 500 ML MDV (1 ML CHARGE) ONE (10:24)
[2023-08-13 17:25] LABS: Bacteria/HPF None Seen HPF (None Seen); Bilirubin Negative (Negative); Blood, Urine Negative (Negative); Clarity Clear (Clear); Glucose, Urine (Dipstick) Normal (Negative); Ketone, Urine Negative (Negative); Leukocyte Negative Leu/uL (Negative); Nitrite Negative (Negative); Protein, Urine (Dipstick) Negative (Neg-Trace); RBC/HPF 0-3 HPF (0-3); Specific Gravity, Urine 1.011 (1.002-1.036); Squamous Epithelial None Seen HPF (0-3); Urobilinogen Normal mg/dL (Less than 2); WBC/HPF 0-3 HPF (0-3); pH, Urine 5.5 (5.0-9.0)
[2023-08-13 19:51] LABS: #Basophils 0.1 thou/uL (0.0-0.2); #Eosinphils 0.1 thou/uL (0.0-0.7); #Monocytes 1.5 thou/uL (0.11-0.59); #Neutrophils 7.9 thou/uL (1.40-6.50); %Basophils 0.6 % (0.0-1.0); %Eosinophils 0.4 % (0.0-10.0); %Lymphocytes 16.3 % (21.0-51.0); %Monocytes 13.4 % (0.0-10.0); %Neutrophils 68.9 % (42.0-75.0); Hematocrit 44.8 % (42.0-52.0); Hemoglobin 15.4 g/dL (14.0-18.0); Mean Corpuscular HGB CONC 34.4 g/dL (32.0-36.0); Mean Corpuscular Volume 93.1 fl (78.0-98.0); Mean Platelet Volume 9.3 fL (7.4-10.4); Platelet Count 229 10x3/uL (130-400); RBC Distribution Width 13.2 % (11.5-14.5); Red Blood Cell (RBC) Count 4.81 mill/uL (4.70-6.10); White Blood Cell (WBC) Count 11.5 10x3/uL (4.8-10.8)
[2023-08-13 20:19] LABS: ALT (SGPT) 30 U/L (8-55); AST (SGOT) 44 U/L (5-34); Albumin 4.2 g/dL (3.5-5.0); Alkaline Phosphatase 56 U/L (40-110); Anion Gap 13 mmol/L (10-20); BUN (Urea Nitrogen) 11 mg/dL (8.9-20.6); Bilirubin, Total 0.9 mg/dL (0.2-1.2); CK (CPK) 2088 U/L (30-200); Calc. Creatinine Clearance 0 mL/min (70-130); Calcium 9.1 mg/dL (7.8-10.44); Carbon Dioxide 25 mmol/L (22-29); Chloride 107 mmol/L (98-107); Estimated GFR 71; Globulin 2.7 g/dL (2.4-3.5); Glucose 85 mg/dL (70-105); Potassium 3.8 mmol/L (3.5-5.1); Protein, Total 6.9 g/dL (6.0-8.3); Sodium 141 mmol/L (136-145)
[2023-08-13 21:27] LABS: Amphetamine Not Detected (NotDetected); Barbiturates Screen Not Detected (NotDetected); Benzodiazepine Screen Not Detected (NotDetected); Cocaine Metabolite Screen Detected (NotDetected); Methadone Not Detected (NotDetected); Methamphetamine Not Detected (NotDetected); Opiate Screen Not Detected (NotDetected); Oxycodone Screen Not Detected (NotDetected); Phencyclidine (PCP) Not Detected (NotDetected); THC/Cannabinoid Screen Not Detected (NotDetected); Tricyclic Screen Not Detected (NotDetected)
[2023-08-13] MEDS: Pregabalin 50 MG CAP PO SCH (21:47)
[2023-08-13 22:22] VITALS: BMI 24.3
[2023-08-14 05:21] LABS: #Basophils 0.1 thou/uL (0.0-0.2); #Eosinphils 0.1 thou/uL (0.0-0.7); %Eosinophils 1.4 % (0.0-10.0); %Lymphocytes 24.7 % (21.0-51.0); %Monocytes 12.5 % (0.0-10.0); %Neutrophils 59.7 % (42.0-75.0); Hematocrit 46.7 % (42.0-52.0); Hemoglobin 15.6 g/dL (14.0-18.0); Mean Corpuscular HGB CONC 33.4 g/dL (32.0-36.0); Mean Corpuscular Hemoglobin 31.1 pg (27.0-31.0); Mean Platelet Volume 9.6 fL (7.4-10.4); Platelet Count 236 10x3/uL (130-400); RBC Distribution Width 13.3 % (11.5-14.5); Red Blood Cell (RBC) Count 5.02 mill/uL (4.70-6.10); White Blood Cell (WBC) Count 8.3 10x3/uL (4.8-10.8)
[2023-08-14 06:03] LABS: Anion Gap 12 mmol/L (10-20); BUN (Urea Nitrogen) 12 mg/dL (8.9-20.6); CK (CPK) 1602 U/L (30-200); Carbon Dioxide 25 mmol/L (22-29); Potassium 3.8 mmol/L (3.5-5.1)
[2023-08-14 06:23] LABS: Calc. Creatinine Clearance 73 mL/min (70-130); Calcium 9.5 mg/dL (7.8-10.44); Chloride 108 mmol/L (98-107); Estimated GFR 76; Glucose 88 mg/dL (70-105); Sodium 141 mmol/L (136-145)
[2023-08-14 08:02] VITALS: BP 112/70; TEMP 97.3
== END 2023-08-14 11:14 | disposition home or self-care (01) ==
LOC: ERS 00:19 → ERHOLD 03:50 → 2SW 21:27
PROVIDERS: ADMIT Student in an Organized Health Care Education/Training Program; ATTEND Internal Medicine
DX: G92.8 Other toxic encephalopathy (principal); T40.5X5A Adverse effect of cocaine, initial encounter; N17.9 Acute kidney failure, unspecified; M62.82 Rhabdomyolysis; D72.829 Elevated white blood cell count, unspecified; N18.9 Chronic kidney disease, unspecified; E78.5 Hyperlipidemia, unspecified; E86.0 Dehydration; F41.9 Anxiety disorder, unspecified; R79.89 Other specified abnormal findings of blood chemistry; Z98.890 Other specified postprocedural states; Z89.212 Acquired absence of left upper limb below elbow; Z79.899 Other long term (current) drug therapy
CPT/HCPCS: 36415; 71045; 71275; 80048; 80053; 80306; 80307; 81001; 82550; 83690; 83880; 84484; 85025; 85379; 93005; G0378; J2405; J7120; Q9967